=== PATIENT | female | born 1985 | race Caucasian/White ===

== ENCOUNTER → 2017-09-17 | Outpatient (CLI) | payer MEDICAID ==
[~2017-09-17] MED LIST: IOPAMIDOL (ISOVUE-300) 100 ML BTL ONE
== END ==
LOC: FIMAGING 08:08
PROVIDERS: ATTEND Internal Medicine Cardiovascular Disease
DX: I87.1 Compression of vein (principal); R60.9 Edema, unspecified; R06.02 Shortness of breath; E27.9 Disorder of adrenal gland, unspecified; N83.201 Unspecified ovarian cyst, right side
CPT/HCPCS: Q9967